=== PATIENT | male | born 1950 | race Hispanic/Latino ===

== ENCOUNTER 2018-06-13 07:55 | Day surgery (SDC) | payer BC ==
[2018-06-13] MEDS ORDERED: Lidocaine 2% Jelly (Uro-Jet) ONE (09:04)
[2018-06-13] MEDS ORDERED: Gentamicin 80 mg in 0.9% NS 160 MG/200 ML BAG IVPB ONE (09:04)
[2018-06-13] MEDS ORDERED: Iohexol 240 (50 ml) ONE (09:04)
[2018-06-13] MEDS ORDERED: Propofol 10 mg/ml Inj (20 ML) ONE ×2 (09:10→09:40)
[2018-06-13] MEDS ORDERED: Midazolam 2 MG/2 ML VIAL ONE (09:45)
[2018-06-13] MEDS ORDERED: Phenylephrine 10 mg/ml Inj ONE (09:54)
[2018-06-13] MEDS ORDERED: ePHEDrine 50 mg/ml Inj ONE (09:55)
--- NOTE | 2018-06-13 11:12 | PCM.SURG1 ---
Surgeon's Initial Post Op Note - Surgeon's Notes Surgeon: Dex Tyson Lpta: PENELOPE Kim Type of Anesthesia: General LMA Pre-Operative Diagnosis: R renal calculi Operative Findings: R ureteral calculi, R renal calculi Post-Operative Diagnosis: same Operation Performed: cystoscopy,. R rigid ureteroscopy, stone basketing of distal uretral stones. R flexible uretero-renoscopy. R renal stone basketing. R laser renolithotripsy. R rtg pyelogram. Insertion of R ureteral stent Specimen/Specimens Removed: urine. ureteral stones. renal stones Estimated Blood Loss: EBL {In ML}: 0 Blood Products Given: N/A Date of Surgery/Procedure: 06/13/18 Time of Surgery/Procedure: 10:55
[2018-06-13] MEDS ORDERED: Lactated Ringer's 1,000 ML IV SCH (11:30)
--- NOTE | 2018-06-13 12:03 | RAD ---
Date of service: 06/13/2018 PROCEDURE: Intraoperative Fluoroscopy. HISTORY: UROLITHIASIS/ RT. RENAL COLIC FINDINGS: Fluoroscopic assistance was provided for ureteroscopy, right side. Please refer to the operative report from Dr. ROY, [place]. Total fluoroscopic time (continuous mode) utilized during the procedure 340.6 (seconds). Total exam DLP: 4.60 (mGy).
[2018-06-13 12:21] VITALS: TEMP 97.6
[2018-06-13 12:38] VITALS: RESP 16
[2018-06-13 13:30] VITALS: BP 133/88; PULSE 80; O2SAT 97
--- NOTE | 2018-06-18 08:13 | OP ---
PROCEDURE DATE: 06/13/2018 PREOPERATIVE DIAGNOSIS: Urolithiasis. POSTOPERATIVE DIAGNOSES: 1. Urolithiasis. 2. Right ureteral calculi. 3. Right renal calculi. PROCEDURES: 1. Cystoscopy. 2. Right distal rigid ureteroscopy and basketing of right ureteral stones. 3. Right flexible ureterorenoscopy. 4. Right renal stone basketing. 5. Right renal laser lithotripsy. 6. Right retrograde pyelogram. 7. Insertion of right ureteral stent. OPERATING SURGEON: Catherine Tyson MD TUBE MOLDER FIBERGLASS: Praveen Kim MD DESCRIPTION OF PROCEDURE: Due to the stone burden and the location of upper and lower urinary tract stones, urologic surgical assistance was required, and this was provided by Dr. Kim. The patient was placed in lithotomy position. The patient received perioperative antibiotics. Anesthesia was applied by the anesthesiologist. The procedure was performed under video endoscopic control as well as under fluoroscopic control. The security team lead film of the abdomen was reviewed. There were noted to be calcifications adjacent to the right distal ureteral stent. There were noted to be calcifications within the kidney involving the mid and lower poles of the right kidney. The ureteral stent was noted to be in proper position with coils within the bladder and kidney. A 22-[place]inean cystoscope sheath was introduced under direct vision. The urethra, prostate, and bladder were dissected. FINDINGS: There was no stricture in the anterior urethra. There was evidence of trilobar prostatic hypertrophy which was occlusive. The bladder demonstrated no tumor. There were multiple stone fragments within the bladder, less than 1 mm in size. There was moderate bladder trabeculation. There was no bladder tumor. The right ureteral stent was identified and grasped with the rigid grasping forceps and brought through the cystoscope sheath to the level of the urethral meatus. A 0.35 inch guidewire was inserted into the right ureteral stent and passed up to the level of the kidney. A second guidewire was introduced using the 10-[place] double-lumen ureteral catheter. Rigid ureteroscopy was performed with a 7-[place] mini-rigid ureteroscope and advanced over the working wire. The stones were encountered within the distal ureter. Stones were approximately 4 mm in diameter. The stones were 4 mm in diameter. The stones were individually grasped under direct ureteroscopic control, and in atraumatic fashion, using the Powell 4-wire flat-wire basket. The stones were fully removed from the distal ureter. Repeat ureteroscopy up to the level of the mid ureter with the rigid ureteroscope was performed. There were no residual stones. The ureteral mucosa was intact following this atraumatic ureteroscopy. The ureteroscope was removed. This guidewire had been reinserted prior to ureteroscope removal. The cystoscope was removed. A 12/14-Guinean ureteral access sheath was inserted over the working wire. The obturator was removed. Flexible ureterorenoscopy was then performed using the 7-[place]ine[place] flexible ureteroscope. Ureteroscope was passed through the ureteral access sheath over the working wire. The ureteroscope was passed up to the level of the kidney under fluoroscopic and video endoscopic control. The kidney was inspected. There were no stones within the upper pole calyces. There were noted to be multiple sites of submucosal yellow and brown calcifications consistent with Jw's plaques involving multiple calyces of the middle and lower poles. The middle and lower pole calyces contained multiple stone fragments. Some of these fragments were removed using the tipless basket under direct ureteroscopic control. The lower pole fragments were also basketed as well as lasered with the 200 micron fiber and the holmium laser in the dusting mode. Multiple fragments were irrigated free. Iodinated contrast dye was instilled via the ureteroscope to delineate the collecting system and to allow entry into the remaining calyces of the lower and middle pole. There were no large remaining fragments identified. The ureteroscope was removed under direct vision and advance of the ureteral access sheath which was also removed. The ureteral mucosa was intact without trauma. A 6-Guinean multi-length cystoscope was back loaded over the remaining guidewire. A 6-[place] multi-length stent was inserted over the guidewire. Proper stent position was confirmed with fluoroscopy and endoscopy. A distal ureteral stent was left to exit per urethra and was secured to the penis. Rectal examination was performed. Prostate was supple and smooth. Prostate was approximately 30 g in size without fixation, induration, or nodularity. The patient tolerated the procedure without complication. Catherine Tyson MD cc: Praveen Kim MD
== END 2018-06-13 13:20 | disposition home or self-care (01) ==
LOC: C.SDS 07:55
PROVIDERS: ATTEND Urology
DX: N20.9 Urinary calculus, unspecified (principal); N20.2 Calculus of kidney with calculus of ureter
CPT/HCPCS: 52332; 82365; 87086; 88300; C1725; C1758; C1769; J1580; J2270; Q9966